=== PATIENT | female | born 1950 | race Caucasian/White ===

== ENCOUNTER → 2019-02-03 | Outpatient (CLI) | payer MEDICARE ==
--- NOTE | 2019-02-03 10:53 | CARD ---
MR#: [id number] Date of Study: 02/03/2019 Ordering Physician: JOE NAME, Referring Physician: JOE WETZEL, Tech: Bertha Kalpesh YOVANY APPROVED REPORT EXAM: Two-dimensional and M-mode echocardiogram with Doppler and color Doppler. Other Information Quality : Good INDICATION Hypertension/HCVD Cardiomyopathy Chest Pain 2D DIMENSIONS RVDd2.3 (2.9-3.5cm)Left Atrium(2D)3.5 (1.6-4.0cm) IVSd0.8 (0.7-1.1cm)Aortic Root(2D)2.5 (2.0-3.7cm) LVDd4.5 (3.9-5.9cm)LVOT Diameter2.0 (1.8-2.4cm) PWd0.8 (0.7-1.1cm)LVDs3.2 (2.5-4.0cm) FS (%) 30.5 %SV54.9 ml LVEF(%)58.1 (>50%) Aortic Valve AoV Peak Ronnell.169.3cm/sAoV VTI35.4cm AO Peak GR.11.5mmHgLVOT Peak Ronnell.108.2cm/s LVOT VTI 23.30cmAO Mean GR.6mmHg ALEIDA (VMAX)2.08bw9LEN (VTI)2.08cm2 Mitral Valve MV E Cmoupwaw77.8cm/sMV DECEL HEQE731in MV A Hptmxwqb73.8cm/sMV EIK91pb E/A Ratio0.8MVA (PHT)3.19cm2 TDI E/Lateral E'10.2E/Medial E'9.9 Pulmonary Vein S1 Zfguszjr02.9cm/sD2 Ffnxmtxa37.5cm/s LEFT VENTRICLE The left ventricle is normal size. There is normal left ventricular wall thickness. The left ventricu lar systolic function is normal and the ejection fraction is within normal range. The Ejection Fracti on is 55-60%. There is normal LV segmental wall motion. Transmitral Doppler flow pattern is Grade I-a bnormal relaxation pattern. RIGHT VENTRICLE The right ventricle is normal size. The right ventricular systolic function is normal. ATRIA The left atrium size is normal. The right atrium size is normal. The interatrial septum is intact wit h no evidence for an atrial septal defect or patent foramen ovale as noted on 2-D or Doppler imaging. AORTIC VALVE The aortic valve is mildly thickened but opens well. Doppler and Color Flow revealed no significant a ortic regurgitation. There is no significant aortic valvular stenosis. MITRAL VALVE The mitral valve is calcified but opens well. Mitral annular calcification is mild. There is no evide nce of mitral valve prolapse. There is no mitral valve stenosis. Doppler and Color-flow revealed trac e mitral regurgitation. TRICUSPID VALVE The tricuspid valve is normal in structure and function. Doppler and Color Flow revealed no tricuspid valve regurgitation noted. There is no tricuspid valve stenosis. PULMONIC VALVE The pulmonic valve is not well visualized. Doppler and Color Flow revealed trace pulmonic valvular re gurgitation. There is no pulmonic valvular stenosis. GREAT VESSELS The aortic root is normal in size. The ascending aorta is normal in size. The IVC is normal in size a nd collapses >50% with inspiration. PERICARDIAL EFFUSION There is no evidence of significant pericardial effusion. Critical Notification Critical Value: No <Conclusion> The left ventricular systolic function is normal and the ejection fraction is within normal range. Th e Ejection Fraction is 55-60%. There is normal LV segmental wall motion. Signed by : Rashid Crawley, Electronically Approved : 02/03/2019 10:53:40
== END | disposition home or self-care (01) ==
LOC: ECHO 09:55
PROVIDERS: ATTEND Physician Assistant
DX: I05.8 Other rheumatic mitral valve diseases (principal); I10 Essential (primary) hypertension; I43 Cardiomyopathy in diseases classified elsewhere
CPT/HCPCS: 93306